=== PATIENT | male | born 1970 | race Two or more races ===

== ENCOUNTER 2019-08-24 23:39 | Emergency (ER) | payer MEDICAID, SELFPAY ==
[~2019-08-24] VITALS: Ht 172.7 cm; Wt 73.9 kg
[2019-08-25 01:09] LABS: Basophils # (auto) 0 10 ^3/uL (0-0.2); Basophils % (auto) 0.3 % (0.0-2.0); Eosinophils # (auto) 0 10 ^3/uL (0-0.8); Eosinophils % (auto) 0.1 % (0.0-7.0); Mean Corpuscular Hemoglobin 34.1 pg (28.0-32.0); Monocytes # (auto) 0.7 10 ^3/uL (0-1.3); Neutrophils # (auto) 3.5 10 ^3/uL (1.6-8.6); Red Cell Distribution Width 12.5 % (11.8-14.3)
[2019-08-25 01:11] LABS: Hematocrit 45.6 % (41.0-53.0); Hemoglobin 15.6 g/dL (13.5-17.5); Lymphocytes # (auto) 0.9 10 ^3/uL (0.4-5.4); Lymphocytes % (auto) 17.3 % (10.0-50.0); Mean Corpuscular Hgb Conc. 34.2 g/dL (32.0-36.0); Mean Corpuscular Volume 99.7 fL (80.0-100.0); Monocytes % (auto) 13.3 % (0.0-12.0); Nucleated Red Blood Cells % 0.2 %; Platelet Count (auto) 117 10^3/uL (140-450); Red Blood Cells 4.57 10^6/uL (4.5-5.90); White Blood Cell 5.1 10^3/uL (4.4-10.8)
[2019-08-25 01:24] LABS: Albumin 3.3 g/dL (3.4-5.0); Anion Gap 7 (5-15); Blood Urea Nitrogen 8 mg/dL (7-18); Calcium 8.5 mg/dL (8.5-10.1); Carbon Dioxide 27 mmol/L (21-32); Chloride 102 mmol/L (98-107); Glucose 117 mg/dL (74-106); Magnesium 2.4 mg/dL (1.6-2.6); Potassium 3.9 mmol/L (3.5-5.1); Sodium 136 mmol/L (136-145)
[2019-08-25 01:26] LABS: Alanine Aminotransferase 154 U/L (16-61); Aspartate Aminotransferase 98 U/L (15-37); BUN/Creatinine Ratio 10.3; GFR African American 137 mL/min; GFR Non-African American 113 mL/min
[2019-08-25 01:42] LABS: Alkaline Phosphatase 65 U/L (45-117); Bilirubin, Total 0.5 mg/dL (0.2-1.0); Total Protein 8.1 g/dL (6.4-8.2)
[2019-08-25 05:50] VITALS: BP 120/76
== END 2019-08-25 06:27 | disposition home or self-care (01) ==
LOC: EDBD 23:39 → ER 23:42
DX: U07.1 COVID-19 (principal); J45.909 Unspecified asthma, uncomplicated; J01.00 Acute maxillary sinusitis, unspecified
CPT/HCPCS: 36415; 71045; 80053; 80320; 82728; 83735; 84484; 85025; 87070; 87635; 87804; 87880; 99001

== ENCOUNTER 2024-11-11 14:12 | Inpatient (IN) | payer MEDICAID ==
[~2024-11-11] VITALS: Ht 172.7 cm; Wt 80.3 kg
--- NOTE | 2024-11-11 14:51 | ED.PDOC ---
GI ASSESSMENT HPI Comments 54 year old male presents to the ED with a chief complaint of abdominal pain onset 3 days. Patient states he was at work 3 days ago, began experiencing generalized weakness, sweats, abdominal discomfort, dark stool with blood. Patient states symptoms worsen today, he was at work began experiencing dizziness, blurry vision, abdominal discomfort, weakness, sweats, pale, headache. Denies any PMHx as well as chest pain, vomiting, diarrhea, hematemesi s, dysuria. No other symptoms or modifying factors present at this time. Chief Complaint: Abdominal Pain Time Seen by MD: 14:40 Reviewed Notes: Medications, Allergies Allergies: Coded Allergies: Caffeine (Verified Allergy, Unknown, 11/11/24) Information Source: Patient Mode of Arrival: Wheelchair Timing: Days Duration: Since onset Prehospital treatment: None Quality: Sharp Vomitus: None Stool: Blood Streaked, Black Severity: Moderate Recent: None Recent Hx of: None Pain Location: Diffuse Modifying Factors: Nothing Associated sign and symptoms: Nausea, Vomiting, Melena, Abdominal Pain, Blood in Stool Past Medical History PAST MEDICAL HISTORY: Denies Surgical History: Denies all surgeries Family History Family History: Reviewed,noncontributory to illness Social History Smoker: Non-Smoker Alcohol: Occasionally Drugs: Denies Drug Use Lives In: Home Constitutional: reports: sweats, weakness; denies: chills, diaphoresis, fatigue, fever, malaise, others EENTM: denies: blurred vision, double vision, ear bleeding, ear discharge, ear drainage, ear pain, ear ringing, eye pain, eye redness, hearing loss, mouth pain, mouth swelling, nasal discharge, nose bleeding, nose congestion, nose pain, photophobia, tearing, throat pain, throat swelling, voice changes, others Respiratory: denies: cough, hemoptysis, orthopnea, SOB at rest, shortness of breath, SOB with excertion, stridor, wheezing, others Cardiovascular: denies: chest pain, dizzy spells, diaphoresis, Dyspnea on exertion, edema, irregular heart beat, left arm pain, lightheadedness, palpitations, PND, syncope, others Gastrointestinal: reports: abdominal pain, melena, rectal bleeding; denies: abdomen distended, blood streaked bowels, constipated, diarrhea, dysphagia, difficulty swallowing, hematemesis, nausea, poor appetite, poor fluid intake, rectal pain, vomiting, others Genitourinary: denies: burning, dysuria, flank pain, frequency, hematuria, incontinence, penile discharge, penile sore, pain, testicle pain, testicle swelling, urgency, others Neurological: reports: dizziness, weakness; denies: fainting, headache, left sided numbness, left sided weakness, numbness, paresthesia, pre-existing deficit, right sided numbness, right sided weakness, seizure, speech problems, tingling, tremors, others Musculoskeletal: denies: back pain, gout, joint pain, joint swelling, muscle pain, muscle stiffness, neck pain, others Integumetry: denies: bruises, change in color, change in hair/nails, dryness, laceration, lesions, lumps, rash, wounds, others Allergic/Immunocompromised: denies: Difficulty Healing, Frequent Infections, Hives, Itching, others Hematologic/Lymphatic: denies: anemia, blood clots, easy bleeding, easy bruising, swollen glands, others Endocrine: denies: excessive hunger, excessive sweating, excessive thirst, excessive urination, flushing, intolerance to cold, intolerance to heat, unexplained weight gain, unexplained weight loss, others Psychiatric: denies: anxiety, bipolar disorder, depression, hopeless, panic disorder, schizophrenia, sleepless, suicidal, others All Other Systems: Reviewed and Negative Physical Exam General Appearance: Moderate Distress, Normal HEENT: Normal ENT Inspection, Pharynx Normal, TMs Normal Neck: Full Range of Motion, Non-Tender, Normal, Normal Inspection Respiratory: Chest Non-Tender, Lungs Clear, No Accessory Muscle Use, No Respiratory Distress, Normal Breath Sounds Cardiovascular: No Edema, No JVD, No Murmur, No Gallop, Normal Peripheral Pulses, Regular Rate/Rhythm Breast Exam: Deferred Gastrointestinal: No Organomegaly, Non Tender, No Pulsatile Mass, Normal Bowel Sounds, Soft Genitalia: Deferred Pelvic: Deferred Rectal: Deferred Extremities: No calf tenderness, Normal capillary refill, Normal inspection, Normal range of motion, Non-tender, No pedal edema Musculoskeletal : Apperance: Normal Neurologic: Alert, 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 Was a procedure done?: No GI differential Dx Differential Diagnosis: Constipation, Diverticular disease, Esophagitis, Gastritis/PUD, Gastroenteritis X-Ray, Labs, Meds, VS Vital Signs Date Time Temp Pulse Resp B/P (MAP) Pulse Ox O2 Delivery O2 Flow Rate FiO2 11/11/24 14:25 97.8 97 16 112/72 (85) 99 97.8 Lab Test 11/11/24 15:17 Range/Units White Blood Count 7.5 4.4-10.8 10^3/uL Red Blood Count 2.66 L 4.5-5.90 10^6/uL Hemoglobin 9.4 L 13.5-17.5 g/dL Hematocrit 26.8 L 41.0-53.0 % Mean Corpuscular Volume 100.9 H 80.0-100.0 fL Mean Corpuscular Hemoglobin 35.2 H 28.0-32.0 pg Mean Corpuscular Hemoglobin Concent 34.9 32.0-36.0 g/dL Red Cell Distribution Width 13.3 11.8-14.3 % Platelet Count 160 140-450 10^3/uL Mean Platelet Volume 9.6 6.9-10.8 fL Neutrophils (%) (Auto) 76.0 37.0-80.0 % Lymphocytes (%) (Auto) 14.2 10.0-50.0 % Monocytes (%) (Auto) 9.1 0.0-12.0 % Eosinophils (%) (Auto) 0.3 0.0-7.0 % Basophils (%) (Auto) 0.4 0.0-2.0 % Neutrophils # (Auto) 5.7 1.6-8.6 10 ^3/uL Lymphocytes # (Auto) 1.1 0.4-5.4 10 ^3/uL Monocytes # (Auto) 0.7 0-1.3 10 ^3/uL Eosinophils # (Auto) 0 0-0.8 10 ^3/uL Basophils # (Auto) 0 0-0.2 10 ^3/uL Nucleated Red Blood Cells 0.1 % Sodium Level 142 136-145 mmol/L Potassium Level 4.2 3.5-5.1 mmol/L Chloride Level 110 H 98-107 mmol/L Carbon Dioxide Level 24 20-31 mmol/L Anion Gap 8 5-15 Blood Urea Nitrogen 25 H 9-23 mg/dL Creatinine 0.69 L 0.700-1.30 mg/dL Glomerular Filtration Rate Calc 110 >90 mL/min BUN/Creatinine Ratio 36.2 H 10.0-20.0 Serum Glucose 108 H 74-106 mg/dL Calcium Level 9.0 8.7-10.4 mg/dL Patient alert. Complaining of abdominal discomfort along with tarry stools. Vitals stable. Answering all questions. Abdomen is soft slightly distended. CT scan of the abdomen reviewed does show colonic disease. Possibly will need colonoscopy. GI consultation. Was given Protonix. Explained to the patient. Continue cardiac monitoring. Time of 1ST Reevaluation: 15:10 Reevaluation 1ST: Unchanged Patient Education/Counseling: Diagnosis, Treatment, Prognosis Family Education/Counseling: Diagnosis, Treatment, Prognosis SEPSIS Sepsis Screen Date sepsis recognized/suspect: Nov 11, 2024 Time Sepsis recognized/suspect: 1422 Recent Procedure: No On Antibiotic Therapy: No Respiratory Rate >20: No Heart Rate >90: Yes Temp<36 C (96.8 F) or >38.3 C: No SBP <90 or MAP <65 mmHG: No New Acute Mental Status Change: No Is the patient on CPAP, BIPAP,: No Physician Orders Ct Ab Pel Wo Con-No Oral Or Iv (11/11/24 14:52) Vital Signs Date Time Temp Pulse Resp B/P (MAP) Pulse Ox O2 Delivery O2 Flow Rate FiO2 11/11/24 14:25 97.8 97 16 112/72 (85) 99 97.8 Laboratory Tests Test 11/11/24 15:17 White Blood Count 7.5 10^3/uL (4.4-10.8) Departure 1 Departure Time of Disposition: 15:07 Impression: Primary Impression: GI bleed Qualified Codes: K92.2 - Gastrointestinal hemorrhage, unspecified Disposition: 09 ADMITTED INPATIENT Admit to: Med Surg Condition: Guarded Critical Care Note Critical Care Time?: No Stability Stability form required: No Heart Score Heart Score: Heart Score Response (Comments) Value History N/A 0 EKG N/A 0 Age N/A 0 Risk Factors N/A 0 Troponin N/A 0 Total 0 I personally scribed for FAYE KWONG MD ([email or web address]) on 11/11/24 at 14:51. Electronically submitted by Faith Merrill ([email or web address]). FAYE KWONG MD Nov 11, 2024 14:51
[2024-11-11 15:36] LABS: Basophils # (auto) 0 10 ^3/uL (0-0.2); Basophils % (auto) 0.4 % (0.0-2.0); Eosinophils # (auto) 0 10 ^3/uL (0-0.8); Eosinophils % (auto) 0.3 % (0.0-7.0); Hemoglobin 9.4 g/dL (13.5-17.5); Mean Corpuscular Hgb Conc. 34.9 g/dL (32.0-36.0); Monocytes # (auto) 0.7 10 ^3/uL (0-1.3)
--- NOTE | 2024-11-11 15:36 | DVH ---
Indication: gibleed Technique: CT axial images of the abdomen and pelvis are obtained without contrast. Coronal and sagit kathie reformats were obtained. Radiation Dose Information: CTDI volume is 7.6 mGy. Dose-length product is 492.08 mGy*cm Comparison: None FINDINGS: There is limited interpretation of the abdomen and pelvis without administration of intravenous contr ast. Lung bases demonstrate atelectasis. Adrenal glands, spleen, pancreas unremarkable in shape. Hepatic steatosis. No CT evidence for dinesh lithiasis. No hydronephrosis, nephrolithiasis. Stomach partially distended. Small bowel loops are normal in caliber. Colonic diverticular disease. Moderate volume stool in the colon. Normal appendix. Bladder partially distended. No free pelvic fluid. No inguinal lymphadenopathy. Moderate left and [id number] right sacroiliitis. Cxie-as-[id number] thoracolumbar degenerative di sc disease. IMPRESSION: Colonic diverticular disease. No hydronephrosis / nephrolithiasis. Hepatic steatosis. Other findings as described.
[2024-11-11 15:37] LABS: Hematocrit 26.8 % (41.0-53.0); Lymphocytes # (auto) 1.1 10 ^3/uL (0.4-5.4); Lymphocytes % (auto) 14.2 % (10.0-50.0); Mean Corpuscular Hemoglobin 35.2 pg (28.0-32.0); Mean Corpuscular Volume 100.9 fL (80.0-100.0); Monocytes % (auto) 9.1 % (0.0-12.0); Neutrophils # (auto) 5.7 10 ^3/uL (1.6-8.6); Nucleated Red Blood Cells % 0.1 %; Platelet Count (auto) 160 10^3/uL (140-450); Red Blood Cells 2.66 10^6/uL (4.5-5.90); Red Cell Distribution Width 13.3 % (11.8-14.3); White Blood Cell 7.5 10^3/uL (4.4-10.8)
[2024-11-11 15:42] LABS: Potassium 4.2 mmol/L (3.5-5.1); Sodium 142 mmol/L (136-145)
[2024-11-11 15:43] LABS: Anion Gap 8 (5-15); Carbon Dioxide 24 mmol/L (20-31)
[2024-11-11 15:48] LABS: BUN/Creatinine Ratio 36.2 (10.0-20.0)
[2024-11-11 15:51] LABS: Blood Urea Nitrogen 25 mg/dL (9-23); Chloride 110 mmol/L (98-107); Glucose 108 mg/dL (74-106)
[2024-11-11 16:33] VITALS: PULSE 99; RESP 18; O2SAT 100
[2024-11-11] MEDS: PANTOPRAZOLE 40 MG/10 ML VIAL INJ IV ONE (16:53)
[2024-11-11] MEDS: ONDANSETRON HCL 4 MG/2 ML VIAL IV ONE (16:53)
[2024-11-11] MEDS: SODIUM CHLORIDE 0.9% 1,000 ML IVB ONE (16:53)
[2024-11-11] MEDS: MORPHINE SULFATE 4 MG/ML SYR/VIAL IV ONE (16:54)
[2024-11-11 18:23] LABS: Urine Bacteria None Seen /hpf (None Seen)
[2024-11-11 18:33] LABS: Urine Blood Negative /uL (Negative); Urine Clarity Clear (Clear); Urine Color Light-Yellow (Yellow); Urine Protein, UAD Negative (Negative); Urine Specific Gravity 1.027 (1.001-1.035); Urine Squamous Epithelial Cell None Seen /hpf (<5); Urine Urobilinogen Normal (Negative); Urine WBC 1 /HPF (0-3)
[2024-11-11] MEDS ORDERED: ONDANSETRON HCL 4 MG/2 ML VIAL IV PRN (19:15)
[2024-11-11 20:01] LABS: Hematocrit 24.6 % (41.0-53.0); Hemoglobin 8.6 g/dL (13.5-17.5)
--- NOTE | 2024-11-11 23:44 | DVHHP2 ---
History of Present Illness Reason for Visit: GI bleed History of Present Illness 54-year-old male presents for evaluation of GI bleed. Patient reports noticing dark-colored stool over the past four days. He states having a three day history of abdominal discomfort with associated diaphoresis intermittently. He also reports occasional dizziness. Denies shortness or breath or palpitations. Past Medical History Denies Past Surgical History Denies Family History Noncontributory Smoke: No ALCOHOL: occassional Drugs: None Lives: with Family Review of Systems Review of Systems Review of systems are currently negative otherwise addressed in HPI. Allergies: Coded Allergies: Caffeine (Verified Allergy, Unknown, 11/11/24) Medications Current Medications Medications Dose Ordered Sig/Rupinder Route Start Time Stop Time Status Last Admin Dose Admin Ondansetron HCl 4 mg Q4HP PRN IV 11/11/24 19:15 Pantoprazole Sodium 40 mg BID IV 11/11/24 23:45 UNV Exam Vital Signs Vital Signs Date Time Temp Pulse Resp B/P (MAP) Pulse Ox O2 Delivery O2 Flow Rate FiO2 11/11/24 20:58 85 18 109/59 11/11/24 20:14 100 11/11/24 16:33 98.0 98.0 11/11/24 16:33 Room Air* 0 21 Exam Gen: 54-year-old male in mild distress. Skin: Warm, dry, normal color and texture, no rash. HEENT: Normocephalic atraumatic, mucous membranes moist and pink. Neck: Cervical and supraclavicular nodes normal without enlargement, trachea is midline, thyroid gland is normal without masses. Pulmonary: Clear to auscultation and percussion bilaterally. Cardiac: Regular rate and rhythm. No murmur Abdomen: Soft, nontender, nondistended, bowel sounds present all 4 quadrants, no guarding, no rigidity, no organomegaly. Extremities: No cyanosis, clubbing, no edema Neuro: Cranial nerves II through XII grossly intact, normal affect and speech, no focal motor deficits. Labs/Xrays ORDERING PHYSICIAN: FAYE KWONG MD PROCEDURE(s): ABPL - CT AB PEL WO CON-NO ORAL OR IV REASON: gibleed ORDER NUMBER(s): [id number], ACCESSION NUMBER(s): [id number] Indication: gibleed Technique: CT axial images of the abdomen and pelvis are obtained without contrast. Coronal and sagittal reformats were obtained. Radiation Dose Information: CTDI volume is 7.6 mGy. Dose-length product is 492.08 mGy*cm Comparison: None FINDINGS: There is limited interpretation of the abdomen and pelvis without administration of intravenous contrast. Lung bases demonstrate atelectasis. Adrenal glands, spleen, pancreas unremarkable in shape. Hepatic steatosis. No CT evidence for cholelithiasis. No hydronephrosis, nephrolithiasis. Stomach partially distended. Small bowel loops are normal in caliber. Colonic diverticular disease. Moderate volume stool in the colon. Normal appendix. Bladder partially distended. No free pelvic fluid. No inguinal lymphadenopathy. Moderate left and [id number] right sacroiliitis. Iyri-xe-fhplefss thoracolumbar degenerative disc disease. IMPRESSION: Colonic diverticular disease. No hydronephrosis / nephrolithiasis. Hepatic steatosis. Other findings as described. ATED BY: MINDY CONNELLY MD DICTATED DATE/TIME: 11/11/24 1535 SIGNED BY: MINDY CONNELLY MD SIGNED DATE/TIME: 11/11/24 153 CC: Labs Test 11/11/24 19:29 11/11/24 18:21 11/11/24 15:17 Range/Units Hemoglobin 8.6 L 13.5-17.5 g/dL Hematocrit 24.6 L 41.0-53.0 % Urine Color Light-yellow Yellow Urine Clarity Clear Clear Urine pH 5.0 5.0-9.0 Urine Specific [place] 1.027 1.001-1.035 Urine Protein Negative Negative Urine Ketones Negative Negative Urine Blood Negative Negative /uL Urine Nitrite Negative Negative Urine Bilirubin Negative Negative Urine Urobilinogen Normal Negative mg/dL Urine Leukocyte Esterase Negative Negative /uL Urine RBC 1 0 - 3 /hpf Urine Microscopic WBC 1 0-3 /HPF Urine Squamous Epithelial Cells None seen <5 /hpf Urine Bacteria None seen None Seen /hpf Urine Glucose Normal Normal mg/dL White Blood Count 7.5 4.4-10.8 10^3/uL Red Blood Count 2.66 L 4.5-5.90 10^6/uL Mean Corpuscular Volume 100.9 H 80.0-100.0 fL Mean Corpuscular Hemoglobin 35.2 H 28.0-32.0 pg Mean Corpuscular Hemoglobin Concent 34.9 32.0-36.0 g/dL Red Cell Distribution Width 13.3 11.8-14.3 % Platelet Count 160 140-450 10^3/uL Mean Platelet Volume 9.6 6.9-10.8 fL Neutrophils (%) (Auto) 76.0 37.0-80.0 % Lymphocytes (%) (Auto) 14.2 10.0-50.0 % Monocytes (%) (Auto) 9.1 0.0-12.0 % Eosinophils (%) (Auto) 0.3 0.0-7.0 % Basophils (%) (Auto) 0.4 0.0-2.0 % Neutrophils # (Auto) 5.7 1.6-8.6 10 ^3/uL Lymphocytes # (Auto) 1.1 0.4-5.4 10 ^3/uL Monocytes # (Auto) 0.7 0-1.3 10 ^3/uL Eosinophils # (Auto) 0 0-0.8 10 ^3/uL Basophils # (Auto) 0 0-0.2 10 ^3/uL Nucleated Red Blood Cells 0.1 % Sodium Level 142 136-145 mmol/L Potassium Level 4.2 3.5-5.1 mmol/L Chloride Level 110 H 98-107 mmol/L Carbon Dioxide Level 24 20-31 mmol/L Anion Gap 8 5-15 Blood Urea Nitrogen 25 H 9-23 mg/dL Creatinine 0.69 L 0.700-1.30 mg/dL Glomerular Filtration Rate Calc 110 >90 mL/min BUN/Creatinine Ratio 36.2 H 10.0-20.0 Serum Glucose 108 H 74-106 mg/dL Calcium Level 9.0 8.7-10.4 mg/dL Assessment/Plan Assessment/Plan Assessment GI bleed Blood loss anemia Generalized weakness Plan Admit the patient to [facility] [place] to the hospitalist GI consult NPO Transfuse if hemoglobin drops below seven Continue treatment per orders. Plan discussed with: Patient My Orders Orders - ABDI JAIME AGACNCathy Procedure Category Date Status Time * Gi Dvh [facility] [place] CONS 11/11/24 Transmitted 19:03 Stool Occult Blood LAB 11/11/24 Logged 19:03 Basic Metabolic Panel LAB 11/12/24 Verified 04:00 Admit ADMIT 11/11/24 Transmitted 19:03 Ondansetron Hcl PHA 11/11/24 In Process (Zofran) 19:15 Complete Blood Count LAB 11/12/24 Verified 04:00 Condition: Stable SANDHYA 11/11/24 In Process 19:03 Clear Liq Diet DIET 11/12/24 Transmitted Breakfast Bedrest With Bathroom SANDHYA 11/11/24 In Process Privileg 19:03 Pantoprazole PHA 11/11/24 Logged (Protonix) 23:45 Type And Screen BBK 11/11/24 Transmitted 23:39 Date of Service: Nov 11, 2024 Billing Provider: ABDI JAIME Common Visit Codes: [id number] INP/OBS CARE (HIGH) ABDI JAIME Nov 11, 2024 23:44
[2024-11-11] MEDS: D5W/SOD CHL 0.45% 1,000 ML IV ONE (23:45)
[2024-11-12] VITALS (9 sets, daily range): BP systolic 109–134; BP diastolic 64–89; PULSE 81–102; RESP 14–18; TEMP 98.2–98.6; O2SAT 95–100
[2024-11-12] MEDS: PANTOPRAZOLE 40 MG/10 ML VIAL INJ IV SCH (01:29)
[2024-11-12 04:31] LABS: Anion Gap 8 (5-15); Carbon Dioxide 25 mmol/L (20-31); Potassium 3.9 mmol/L (3.5-5.1); Sodium 141 mmol/L (136-145)
[2024-11-12 04:35] LABS: Calcium 8.1 mg/dL (8.7-10.4); Chloride 108 mmol/L (98-107)
[2024-11-12 04:37] LABS: BUN/Creatinine Ratio 25.4 (10.0-20.0); Blood Urea Nitrogen 15 mg/dL (9-23)
[2024-11-12 04:38] LABS: Basophils # (auto) 0 10 ^3/uL (0-0.2); Eosinophils # (auto) 0.1 10 ^3/uL (0-0.8); Hemoglobin 8.3 g/dL (13.5-17.5); Monocytes # (auto) 0.9 10 ^3/uL (0-1.3); Neutrophils # (auto) 4.6 10 ^3/uL (1.6-8.6); Nucleated Red Blood Cells % 0.2 %; White Blood Cell 7.3 10^3/uL (4.4-10.8)
[2024-11-12 04:40] LABS: Basophils % (auto) 0.4 % (0.0-2.0); Hematocrit 23.6 % (41.0-53.0); Lymphocytes # (auto) 1.7 10 ^3/uL (0.4-5.4); Lymphocytes % (auto) 23.6 % (10.0-50.0); Mean Corpuscular Hemoglobin 35.5 pg (28.0-32.0); Mean Corpuscular Hgb Conc. 34.9 g/dL (32.0-36.0); Mean Corpuscular Volume 101.6 fL (80.0-100.0); Monocytes % (auto) 12.4 % (0.0-12.0); Neutrophils % (auto) 62.6 % (37.0-80.0); Platelet Count (auto) 140 10^3/uL (140-450); Red Blood Cells 2.33 10^6/uL (4.5-5.90); Red Cell Distribution Width 13.2 % (11.8-14.3)
[2024-11-12 04:45] LABS: Glucose 120 mg/dL (74-106)
[2024-11-12] MEDS ORDERED: SODIUM CHLORIDE 0.9% 1,000 ML IV SCH (08:00)
[2024-11-12] MEDS ORDERED: PANTOPRAZOLE 40 MG/10 ML VIAL INJ IV SCH (10:00)
[2024-11-12] MEDS ORDERED: HYDROcodone-ACET 5/325MG TAB PO PRN (10:00)
[2024-11-12] MEDS ORDERED: ACETAMINOPHEN 325 MG TAB PO PRN (10:00)
[2024-11-12 10:28] LABS: Folate (Folic Acid) 16.4 ng/mL (>5.38)
[2024-11-12 10:32] LABS: % Iron Saturation 38.9 % (20-55)
[2024-11-12] MEDS: HYDROcodone-ACET 5/325MG TAB PO PRN (10:51)
[2024-11-12 12:19] LABS: INR 1.09 (0.9-1.15); Prothrombin Time 11.5 sec (9.3-11.8)
--- NOTE | 2024-11-12 12:30 | DVH ---
EXAM: XY CHEST XRAY 1 VIEW Indication: Pain; Rule out PNA Technique: Single frontal view of the chest was obtained Comparison: None FINDINGS: Lines and Tubes: None Lungs: Nodular opacity projecting over the right mid lung measuring 7 mm. No focal consolidation. Pleura: No effusion. No pneumothorax. Cardiomediastinal contours: Unremarkable Bones: No acute osseous abnormality. IMPRESSION: Nodular opacity projecting over the right mid lung measuring 7 mm. No focal consolidation. If clinica lly indicated, consider further evaluation with CT.
--- NOTE | 2024-11-12 13:00 | DVHINCON2 ---
GI Consult Consult Note GI consult note Date of Consultation: 11/12/2024 Chief Complaint: GI bleed Referring Physician: Gui Franco H&P: 54-year-old male presents with melena. Patient complains of dark stools for 4-5 days. Also complaining of mild periumbilical discomfort. No nausea or vomiting. No history of GERD. Admits to occasional alcohol only. Takes Excedrin about 2-3 times per week. Denies liver problems. No EGD in past. No blood thinners Past Medical History: Denies Past Surgical History: Denies Social History: NO smoking, occasional drinking ETOH and denies use of illegal drugs. Family History: Noncontributory Review of Systems: Constitutional: no fever, chill, weight loss HEENT: no eye pain, no hearing loss, no oral lesion, no scleral icterus Heart: no chest pain, no chest pressure Lung: no cough, no dyspnea with exertion Abdomen: see HPI Physical exam: General: NAD, AAOX3 Chest: lung oliver clear to auscultation Heart: RRR, no murmur Abdomen: non-distended, no tenderness to palpation, +BS Labs: Labs Test 11/12/24 11:48 11/12/24 09:00 11/12/24 03:44 11/11/24 18:21 Range/Units Prothrombin Time 11.5 9.3-11.8 sec Prothrombin Time INR 1.09 0.9-1.15 Stool Occult Blood Positive Negative Stool Occult Blood Sample #3 Negative White Blood Count 7.3 4.4-10.8 10^3/uL Red Blood Count 2.33 L 4.5-5.90 10^6/uL Hemoglobin 8.3 L 13.5-17.5 g/dL Hematocrit 23.6 L 41.0-53.0 % Mean Corpuscular Volume 101.6 H 80.0-100.0 fL Mean Corpuscular Hemoglobin 35.5 H 28.0-32.0 pg Mean Corpuscular Hemoglobin Concent 34.9 32.0-36.0 g/dL Red Cell Distribution Width 13.2 11.8-14.3 % Platelet Count 140 140-450 10^3/uL Mean Platelet Volume 9.5 6.9-10.8 fL Neutrophils (%) (Auto) 62.6 37.0-80.0 % Lymphocytes (%) (Auto) 23.6 10.0-50.0 % Monocytes (%) (Auto) 12.4 H 0.0-12.0 % Eosinophils (%) (Auto) 1.0 0.0-7.0 % Basophils (%) (Auto) 0.4 0.0-2.0 % Neutrophils # (Auto) 4.6 1.6-8.6 10 ^3/uL Lymphocytes # (Auto) 1.7 0.4-5.4 10 ^3/uL Monocytes # (Auto) 0.9 0-1.3 10 ^3/uL Eosinophils # (Auto) 0.1 0-0.8 10 ^3/uL Basophils # (Auto) 0 0-0.2 10 ^3/uL Nucleated Red Blood Cells 0.2 % Sodium Level 141 136-145 mmol/L Potassium Level 3.9 3.5-5.1 mmol/L Chloride Level 108 H 98-107 mmol/L Carbon Dioxide Level 25 20-31 mmol/L Anion Gap 8 5-15 Blood Urea Nitrogen 15 # 9-23 mg/dL Creatinine 0.59 L 0.700-1.30 mg/dL Glomerular Filtration Rate Calc 115 >90 mL/min BUN/Creatinine Ratio 25.4 H 10.0-20.0 Serum Glucose 120 H 74-106 mg/dL Hemoglobin A1c 5.3 <5.7 % A1C Calcium Level 8.1 L 8.7-10.4 mg/dL Iron Level 125 65-175 ug/dL Total Iron Binding Capacity 321 250-425 ug/dL Percent Iron Saturation 38.9 20-55 % Vitamin B12 Level 430 211-911 pg/mL Vitamin D 25-Hydroxy 21.1 L 30.0-100 ng/mL Folic Acid 16.40 >5.38 ng/mL Thyroid Stimulating Hormone (TSH) 2.57 0.55-4.78 uIU/mL Urine Color Light-yellow Yellow Urine Clarity Clear Clear Urine pH 5.0 5.0-9.0 Urine Specific [place] 1.027 1.001-1.035 Urine Protein Negative Negative Urine Ketones Negative Negative Urine Blood Negative Negative /uL Urine Nitrite Negative Negative Urine Bilirubin Negative Negative Urine Urobilinogen Normal Negative mg/dL Urine Leukocyte Esterase Negative Negative /uL Urine RBC 1 0 - 3 /hpf Urine Microscopic WBC 1 0-3 /HPF Urine Squamous Epithelial Cells None seen <5 /hpf Urine Bacteria None seen None Seen /hpf Urine Glucose Normal Normal mg/dL Imaging: CT abdomen pelvis IMPRESSION: Colonic diverticular disease. No hydronephrosis / nephrolithiasis. Hepatic steatosis. Other findings as described. Assessment: GI bleed Anemia Colonic diverticular disease Hepatic steatosis Plan: Discussed with Dr. Rees - Pt will be scheduled for an EGD today 11/12/2024. Pt was informed of the risks (bleeding, infection, perforation, reaction to sedation medications and cardiopulmonary arrest) and benefit and is agreeable to undergo the procedures. Labs for LFT Discussed plan with patient and RN Thank you for this consult Date of Service: Nov 12, 2024 Billing Provider: IMELDA HEDRICK Common Visit Codes: CONSULT ONLY Consultation Codes: [id number] CONSULT <60MIN IMELDA HEDRICK Nov 12, 2024 13:00
[2024-11-12] MEDS ORDERED: SODIUM CHLORIDE LOCK 10 ML ONE (13:29)
[2024-11-12] MEDS: LIDOCAINE VISCOUS 2% 15ML UD ONE (16:16)
[2024-11-12] MEDS: fentaNYL CITRATE 100 MCG/2 ML VL ONE (16:17)
[2024-11-12] MEDS: MIDAZOLAM HCL 5 MG/ML-1ML VIAL ONE (16:17)
[2024-11-12] MEDS: diphenhdrAMINE HCL 50 MG/1 ML VL ONE (16:17)
--- NOTE | 2024-11-12 16:36 | DVHPNRES ---
Progress Note Date Seen: Nov 12, 2024 Resident Creating Document: MOISES HANNA RESIDENT Medical Necessity Reason Pt with a Central, PICC or Fol: No Subjective Review of Systems 54 yo M presents to the hospital with a chief complaint of an acute episode of sweating, feeling cold, and experiencing changes in mental status and vision while at work. The patient reports that during this event, he started sweating and feeling cold, accompanied by a loss of mental clarity and visual disturbances. He denies any blood in his stool. The patient's medical history is significant for low hemoglobin levels, which were recently discovered. He denies any history of hypertension. The patient reports taking medication for headaches at home but does not specify which medications. He denies smoking or drug use. CONSTITUTIONAL: Denies weight loss, fever and chills. HEENT: Admits headache, dizziness RESPIRATORY: Denies SOB and cough. CV: Denies palpitations and chest pain. GI: Denies abdominal pain, nausea, vomiting and diarrhea. : Denies dysuria and urinary frequency. MSK: Denies myalgia and joint pain. SKIN: Denies rash and pruritus. NEUROLOGICAL: No focal deficit Objective vital signs Vital Sign Date Time Temp Pulse Resp B/P (MAP) Pulse Ox O2 Delivery O2 Flow Rate FiO2 11/12/24 12:35 98.2 91 17 128/89 (102) 99 98.2 11/11/24 16:33 Room Air* 0 21 medications Current Medications Medications Dose Ordered Sig/Rupinder Route Start Time Stop Time Status Last Admin Dose Admin Ondansetron HCl 4 mg Q4HP PRN IV 11/11/24 19:15 Pantoprazole Sodium 40 mg BID IV 11/11/24 23:45 11/12/24 10:26 40 MG Acetaminophen/ Hydrocodone Bitart 1 tab Q6HPRN PRN PO 11/12/24 10:00 11/12/24 10:51 1 TAB Acetaminophen 500 mg Q6HPRN PRN PO 11/12/24 10:45 Examination GENERAL: Not in acute distress. HEENT: EOMI, Moist mucous membranes. No scleral icterus. No cervical lymphadenopathy. LUNGS: Clear to auscultation bilaterally. No accessory muscle use. CARDIOVASCULAR: Regular rate and rhythm. No murmur. No JVD. ABDOMEN: Soft, nontender and nondistended. No palpable masses. EXTREMITIES: No edema. Nontender. SKIN: No rashes or lesions. Warm. NEUROLOGIC: Alert and oriented X3 laboratory and microbiology Laboratory Tests 11/12/24 03:44 Test 11/12/24 03:44 Range/Units Serum Glucose 120 H 74-106 mg/dL Problem List/Assessment/Plan Problem List/Assessment/Plan # Symptomatic anemia due to possible upper GI bleed # Melena to likely upper GI bleeding # dizziness due to anemia # orthostatic hypotension due to possible dehydration # Colonic Diverticulosis. # Hepatic steatosis # Generalized weakness due to anemia - today hemoglobin was 8.3 - Consult Gastroenterology for evaluation of potential GI bleeding - is still occult blood positive - Order blood tests to assess for vitamin deficiencies - Maintain NPO status or possible endoscopy - Transfuse if hemoglobin drops below 7. # Intractable headache - Administer Tylenol 500mg PO q6h PRN for headache - headache is improving Goal of care discussed with patient for 23 minutes: Full code Plan discussed with Dr. Charles Plan discussed with: Patient My Orders My Orders Orders - MOISES HANNA RESIDENT Procedure Category Date Status Time Drug Screen LAB 11/12/24 Logged 07:48 Hydrocodone-Acet PHA 11/12/24 In Process 5/325mg Tab ([place] 10:00 Acetaminophen Tab Or PHA 11/12/24 In Process Cap (Tylenol Tablet 10:45 Electrocardigram EKG 11/12/24 Logged 11:18 Chest Xray 1 View XY 11/12/24 Resulted 11:31 Date of Service: Nov 12, 2024 Billing Provider: LUNA MCMILLAN MD Common Visit Codes: [id number] INP/OBS CARE(HIGH) MOISES HANNA RESIDENT Nov 12, 2024 16:36 LUNA MCMILLAN MD Nov 18, 2024 21:57
--- NOTE | 2024-11-12 16:43 | DVHOP2 ---
Operative Report DATE OF OPERATION: 11/12/24 PROCEDURE: Upper Endoscopy with biopsy. PREOPERATIVE INDICATION: The patient is a 54 -year-old male undergoing endoscopy for melena and anemia POSTOPERATIVE DIAGNOSES: 1. Moderate gastritis and gastropathy and multiple pre-pyloric antral gastric ulcers PROCEDURE PERFORMED BY: Tyrone Rees GI NURSE: Shu SCOPE: Olympus videoendoscope. ASA CLASS: 2 PREOPERATIVE MEDICATIONS: Versed 3 mg, Fentanyl 50 mcg, Benadryl 50 mg I administered moderate sedation throughout this _7_ minutes procedure. An independent trained observer pushed medications at my direction, and monitored the patient's level of consciousness and physiological status throughout. PROCEDURE IN DETAIL: After obtaining an informed consent, the patient was placed on left lateral decubitus position. The patient was then sedated with the above medications. A bite block was placed between his teeth. The endoscope was then passed through the oropharynx, into the esophagus, and through the stomach and pylorus up to the second and third part of the duodenum. The endoscope was then withdrawn. Second and 3rd part of the duodenum and the duodenal bulb were normal. Duodenal biopsies were obtained The pre-pyloric area and antrum showed multiple antral gastric ulcers Alexander classification C with no visible vessel no active bleeding On retroflexion there was mild gastropathy in the proximal stomach. Gastric b iopsies were obtained. No fresh or old blood in the upper GI tract The endoscope was then withdrawn into distal esophagus where he had a slightly irregular squamocolumnar junction but no significant hiatal hernia or esophagitis The remaining distal and proximal esophagus and oropharynx were unremarkable. The patient tolerated the procedure well without difficulty. COMPLICATIONS : None SPECIMENS: Duodenal Biopsies Gastric biopsies DISPOSITION: Transfer back to the floor Stable PLAN: 1. Await for biopsy result 2. Will place pt on Protonix 40 mg bid 3. Carafate 1 g p.o. 4 times a day 4. Full liquid diet advance as tolerated 5. DC aspirin Excedrin smoking alcohol 6. Outpatient follow up with me in 4-6 weeks to review results and discuss elective screening colonoscopy TYRONE REES MD Nov 12, 2024 16:43
[2024-11-12] MEDS: SUCRALFATE 1 GM/10 ML ORAL SUSP PO SCH (18:43)
[2024-11-13] VITALS (7 sets, daily range): BP systolic 113–144; BP diastolic 63–89; PULSE 81–122; RESP 16–19; TEMP 98–100.7; O2SAT 92–98
[2024-11-13] MEDS: ACETAMINOPHEN 500 MG TAB or CAP PO PRN (01:09)
[2024-11-13 06:33] LABS: Basophils # (auto) 0 10 ^3/uL (0-0.2); Eosinophils # (auto) 0.1 10 ^3/uL (0-0.8); Hemoglobin 8.5 g/dL (13.5-17.5)
[2024-11-13 06:36] LABS: Basophils % (auto) 0.3 % (0.0-2.0); Eosinophils % (auto) 0.9 % (0.0-7.0); Hematocrit 24.2 % (41.0-53.0); Lymphocytes # (auto) 1.5 10 ^3/uL (0.4-5.4); Lymphocytes % (auto) 15.4 % (10.0-50.0); Mean Corpuscular Hemoglobin 35.8 pg (28.0-32.0); Mean Corpuscular Hgb Conc. 35.3 g/dL (32.0-36.0); Mean Corpuscular Volume 101.5 fL (80.0-100.0); Monocytes % (auto) 10.6 % (0.0-12.0); Neutrophils # (auto) 7.1 10 ^3/uL (1.6-8.6); Neutrophils % (auto) 72.8 % (37.0-80.0); Nucleated Red Blood Cells % 0.3 %; Platelet Count (auto) 143 10^3/uL (140-450); Red Blood Cells 2.38 10^6/uL (4.5-5.90); White Blood Cell 9.8 10^3/uL (4.4-10.8)
[2024-11-13 07:01] LABS: Alanine Aminotransferase 174 U/L (7-40); Albumin 3.7 g/dL (3.2-4.8); Alkaline Phosphatase 68 U/L (46-116); Anion Gap 10 (5-15); Aspartate Aminotransferase 89 U/L (<34); BUN/Creatinine Ratio 11.5 (10.0-20.0); Bilirubin, Total 0.7 mg/dL (0.2-1.0); Blood Urea Nitrogen 9 mg/dL (9-23); Calcium 8.2 mg/dL (8.7-10.4); Carbon Dioxide 26 mmol/L (20-31); Chloride 105 mmol/L (98-107); Glucose 116 mg/dL (74-106); Potassium 3.6 mmol/L (3.5-5.1); Sodium 141 mmol/L (136-145)
--- NOTE | 2024-11-13 13:48 | DVHPNRES ---
Progress Note Date Seen: Nov 13, 2024 Resident Creating Document: MOISES HANNA RESIDENT Medical Necessity Reason Pt with a Central, PICC or Fol: No Subjective Review of Systems Patient seen and examined at bedside, feeling better. No complaint of dizziness today. Patient underwent EGD yesterday, patient was febrile in the morning. Started antibiotics Objective vital signs Vital Sign Date Time Temp Pulse Resp B/P (MAP) Pulse Ox O2 Delivery O2 Flow Rate FiO2 11/13/24 09:00 98.5 81 19 113/70 (84) 98 98.5 11/13/24 08:00 Room Air* 0 21 Total Intake and Output 11/12/24 11/12/24 11/13/24 15:00 23:00 07:00 Intake Total 237 ml 220 ml Balance 237 ml 220 ml medications Current Medications Medications Dose Ordered Sig/Rupinder Route Start Time Stop Time Status Last Admin Dose Admin Ondansetron HCl 4 mg Q4HP PRN IV 11/11/24 19:15 Pantoprazole Sodium 40 mg BID IV 11/11/24 23:45 11/13/24 09:36 40 MG Acetaminophen/ Hydrocodone Bitart 1 tab Q6HPRN PRN PO 11/12/24 10:00 11/13/24 04:08 1 TAB Acetaminophen 500 mg Q6HPRN PRN PO 11/12/24 10:45 11/13/24 01:09 500 MG Sucralfate 1 gm QID@0600,1130,1700,2200 PO 11/12/24 17:00 11/13/24 11:43 1 GM Examination GENERAL: Not in acute distress. HEENT: EOMI, Moist mucous membranes. No scleral icterus. No cervical lymphadenopathy. LUNGS: Clear to auscultation bilaterally. No accessory muscle use. CARDIOVASCULAR: Regular rate and rhythm. No murmur. No JVD. ABDOMEN: Soft, nontender and nondistended. No palpable masses. EXTREMITIES: No edema. Nontender. SKIN: No rashes or lesions. Warm. NEUROLOGIC: Alert and oriented X3. laboratory and microbiology Laboratory Tests 11/13/24 05:31 Test 11/13/24 05:31 Range/Units Serum Glucose 116 H 74-106 mg/dL Problem List/Assessment/Plan Problem List/Assessment/Plan # Symptomatic anemia due to possible upper GI bleed # Melena to likely upper GI bleeding # dizziness due to anemia # orthostatic hypotension due to possible dehydration # Colonic Diverticulosis. # Generalized weakness due to anemia - today hemoglobin was 8.5 - Consult Gastroenterology for evaluation of potential GI bleeding - stool occult blood positive - Order blood tests to assess for vitamin deficiencies - advanced food as tolerated - Transfuse if hemoglobin drops below 7. # Moderate gastritis and gastropathy and multiple pre-pyloric antral gastric ulcers - EGD shows gastric ulcer, no active bleeding - biopsy taken - outpatient follow up with GI to discuss the result of biopsy. # SIRS positive due to possible gastrointestinal infection with unknown organism - temperature was 100.1F, heart rate 122, -started broad-spectrum antibiotic, IV Rocephin and IV metronidazole # Intractable headache - Administer Tylenol 500mg PO q6h PRN for headache - headache is improving. # Transaminitis due to Hepatic steatosis - monitor liver function # incidental finding of lung nodule - chest x-ray shows 7 mm lung nodule - follow up with idea worker for outpatient surveillance. Goal of care discussed with patient for 25 minutes: Full code Plan discussed with Dr. Charles Plan discussed with: Patient Date of Service: Nov 13, 2024 Billing Provider: LUNA MCMILLAN MD Common Visit Codes: [id number] INP/OBS CARE(HIGH) MOISES HANNA RESIDENT Nov 13, 2024 13:48 LUNA MCMILLAN MD Nov 18, 2024 22:03
--- NOTE | 2024-11-13 14:10 | DVHPN2 ---
Progress Note - Dictate Date Seen: Nov 13, 2024 Medical Necessity Reason Pt with a Central, PICC or Fol: No Subjective No new complaints Patient is sitting at the edge of the bed He is tolerating a full liquid diet No nausea vomiting or abdominal pain EGD findings reviewed with patient Operative Report DATE OF OPERATION: 11/12/24 PROCEDURE: Upper Endoscopy with biopsy. PREOPERATIVE INDICATION: The patient is a 54 -year-old male undergoing endoscopy for melena and anemia POSTOPERATIVE DIAGNOSES: 1. Moderate gastritis and gastropathy and multiple pre-pyloric antral gastric ulcers vital signs Vital Sign Date Time Temp Pulse Resp B/P (MAP) Pulse Ox O2 Delivery O2 Flow Rate FiO2 11/13/24 09:00 98.5 81 19 113/70 (84) 98 98.5 11/13/24 08:00 Room Air* 0 21 Total Intake and Output 11/12/24 11/12/24 11/13/24 15:00 23:00 07:00 Intake Total 237 ml 220 ml Balance 237 ml 220 ml medications Current Medications Medications Dose Ordered Sig/Rupinder Route Start Time Stop Time Status Last Admin Dose Admin Ondansetron HCl 4 mg Q4HP PRN IV 11/11/24 19:15 Pantoprazole Sodium 40 mg BID IV 11/11/24 23:45 11/13/24 09:36 40 MG Acetaminophen/ Hydrocodone Bitart 1 tab Q6HPRN PRN PO 11/12/24 10:00 11/13/24 04:08 1 TAB Acetaminophen 500 mg Q6HPRN PRN PO 11/12/24 10:45 11/13/24 01:09 500 MG Sucralfate 1 gm QID@0600,1130,1700,2200 PO 11/12/24 17:00 11/13/24 11:43 1 GM objective General: NAD, AAOX3 Chest: lung oliver clear to auscultation Heart: RRR, no murmur Abdomen: non-distended, no tenderness to palpation, +BS laboratory and microbiology Laboratory Tests 11/13/24 05:31 Test 11/13/24 05:31 Range/Units Serum Glucose 116 H 74-106 mg/dL Problems(with codes): (1) Gastritis (2) Epigastric pain (3) Melena (4) GI bleed Prognosis PLAN Advance to soft mechanical diet His H&H is stable Maintained on Protonix and Carafate Discharge planning as per hospitalist Outpatient follow up with me for elective colonoscopy Plan discussed with: Patient TYRONE EGAN MD Nov 13, 2024 14:10
[2024-11-13] MEDS: cefTRIAXone 1GM/50ML D5W 50 ML IV ONE (16:13)
[2024-11-13] MEDS: metroNIDAZOLE 500MG/100ML 100 ML IV ONE (16:27)
[2024-11-13] MEDS: metroNIDAZOLE 500MG/100ML 100 ML IV SCH (21:57)
[2024-11-14 01:00] VITALS: BP 137/88; PULSE 86; RESP 18; TEMP 98.3; O2SAT 98
[2024-11-14 05:00] VITALS: BP 123/85; PULSE 67; RESP 18; TEMP 97.8; O2SAT 99
[2024-11-14 07:29] LABS: COVID19 ANTIGEN SOFIA FIA NEGATIVE (NEGATIVE); Rapid Influenza A Negative (Negative); Rapid Influenza B Negative (Negative)
[2024-11-14 09:00] VITALS: BP 118/77; PULSE 86; RESP 20; TEMP 97.9; O2SAT 97
[2024-11-14] MEDS ORDERED: SUCR1SUS26 PO (09:44)
[2024-11-14] MEDS ORDERED: METR-344 PO (09:44)
[2024-11-14] MEDS ORDERED: CIPR-173 PO (09:44)
[2024-11-14] MEDS ORDERED: PANT40TA2 PO (09:44)
--- NOTE | 2024-11-14 09:48 | DVHPN2 ---
Progress Note - Dictate Date Seen: Nov 14, 2024 Medical Necessity Reason Pt with a Central, PICC or Fol: No Subjective Patient complaining of headache He also had abdominal pain yesterday after eating Patient was tested for COVID and flu with nasal swab EGD findings reviewed with patient Operative Report DATE OF OPERATION: 11/12/24 PROCEDURE: Upper Endoscopy with biopsy. PREOPERATIVE INDICATION: The patient is a 54 -year-old male undergoing endoscopy for melena and anemia POSTOPERATIVE DIAGNOSES: 1. Moderate gastritis and gastropathy and multiple pre-pyloric antral gastric ulcers vital signs Vital Sign Date Time Temp Pulse Resp B/P (MAP) Pulse Ox O2 Delivery O2 Flow Rate FiO2 11/14/24 09:00 97.9 86 20 118/77 (91) 97 97.9 11/14/24 08:00 Room Air* 0 21 Total Intake and Output 11/13/24 11/13/24 11/14/24 15:00 23:00 07:00 Intake Total 1060 ml 250 ml Balance 1060 ml 250 ml medications Current Medications Medications Dose Ordered Sig/Rupinder Route Start Time Stop Time Status Last Admin Dose Admin Ondansetron HCl 4 mg Q4HP PRN IV 11/11/24 19:15 Pantoprazole Sodium 40 mg BID IV 11/11/24 23:45 11/13/24 21:57 40 MG Acetaminophen/ Hydrocodone Bitart 1 tab Q6HPRN PRN PO 11/12/24 10:00 11/13/24 16:00 1 TAB Acetaminophen 500 mg Q6HPRN PRN PO 11/12/24 10:45 11/13/24 20:14 500 MG Sucralfate 1 gm QID@0600,1130,1700,2200 PO 11/12/24 17:00 11/14/24 05:09 1 GM Ceftriaxone Sodium 50 ml @ 100 mls/hr DAILY@09 IV 11/14/24 09:00 Metronidazole 100 ml @ 100 mls/hr Q8HR IV 11/13/24 22:00 11/14/24 05:09 100 MLS/HR objective General: NAD, AAOX3 Chest: lung oliver clear to auscultation Heart: RRR, no murmur Abdomen: non-distended, no tenderness to palpation, +BS laboratory and microbiology Laboratory Tests 11/13/24 05:31 Test 11/13/24 05:31 Range/Units Serum Glucose 116 H 74-106 mg/dL Problems(with codes): (1) Epigastric pain (2) Gastritis (3) Melena (4) GI bleed Prognosis Plan Continue Protonix 40 mg p.o. twice a day Carafate 1 g p.o. 4 times a day DC Excedrin aspirin smoking alcohol Advance diet as tolerated Monitor labs Discharge planning as per hospitalist Plan discussed with: Other (Nurse) TYRONE EGAN MD Nov 14, 2024 09:47
--- NOTE | 2024-11-14 09:49 | DVHDSRES ---
Discharge Summary Date of Admission Resident Creating Document: MOISES HANNA RESIDENT Nov 11, 2024 at 18:57 Date of Discharge: Nov 14, 2024 Admitting Diagnosis GI bleed Labs/Diagnostic Data: Laboratory Results Test 11/14/24 05:00 11/13/24 05:31 11/12/24 11:48 11/12/24 09:00 Influenza Type A Antigen Negative (Negative) Influenza Type B Antigen Negative (Negative) SARS-CoV-2 Antigen (Rapid) Negative (NEGATIVE) White Blood Count 9.8 10^3/uL (4.4-10.8) Red Blood Count 2.38 10^6/uL (4.5-5.90) Hemoglobin 8.5 g/dL (13.5-17.5) Hematocrit 24.2 % (41.0-53.0) Mean Corpuscular Volume 101.5 fL (80.0-100.0) Mean Corpuscular Hemoglobin 35.8 pg (28.0-32.0) Mean Corpuscular Hemoglobin Concent 35.3 g/dL (32.0-36.0) Red Cell Distribution Width 14.0 % (11.8-14.3) Platelet Count 143 10^3/uL (140-450) Mean Platelet Volume 9.6 fL (6.9-10.8) Neutrophils (%) (Auto) 72.8 % (37.0-80.0) Lymphocytes (%) (Auto) 15.4 % (10.0-50.0) Monocytes (%) (Auto) 10.6 % (0.0-12.0) Eosinophils (%) (Auto) 0.9 % (0.0-7.0) Basophils (%) (Auto) 0.3 % (0.0-2.0) Neutrophils # (Auto) 7.1 10 ^3/uL (1.6-8.6) Lymphocytes # (Auto) 1.5 10 ^3/uL (0.4-5.4) Monocytes # (Auto) 1.0 10 ^3/uL (0-1.3) Eosinophils # (Auto) 0.1 10 ^3/uL (0-0.8) Basophils # (Auto) 0 10 ^3/uL (0-0.2) Nucleated Red Blood Cells 0.3 % Sodium Level 141 mmol/L (136-145) Potassium Level 3.6 mmol/L (3.5-5.1) Chloride Level 105 mmol/L (98-107) Carbon Dioxide Level 26 mmol/L (20-31) Anion Gap 10 (5-15) Blood Urea Nitrogen 9 mg/dL (9-23) Creatinine 0.78 mg/dL (0.700-1.30) Glomerular Filtration Rate Calc 106 mL/min (>90) BUN/Creatinine Ratio 11.5 (10.0-20.0) Serum Glucose 116 mg/dL (74-106) Calcium Level 8.2 mg/dL (8.7-10.4) Total Bilirubin 0.7 mg/dL (0.2-1.0) Aspartate Amino Transferase (AST) 89 U/L (<34) Alanine Aminotransferase (ALT) 174 U/L (7-40) Alkaline Phosphatase 68 U/L (46-116) Total Protein 6.0 g/dL (5.7-8.2) Albumin 3.7 g/dL (3.2-4.8) Prothrombin Time 11.5 sec (9.3-11.8) Prothrombin Time INR 1.09 (0.9-1.15) Stool Occult Blood Positive (Negative) Stool Occult Blood Sample #3 (Negative) Test 11/12/24 03:44 11/11/24 18:21 Hemoglobin A1c 5.3 % A1C (<5.7) Iron Level 125 ug/dL (65-175) Total Iron Binding Capacity 321 ug/dL (250-425) Percent Iron Saturation 38.9 % (20-55) Vitamin B12 Level 430 pg/mL (211-911) Vitamin D 25-Hydroxy 21.1 ng/mL (30.0-100) Folic Acid 16.40 ng/mL (>5.38) Thyroid Stimulating Hormone (TSH) 2.57 uIU/mL (0.55-4.78) Urine Color Light-yellow (Yellow) Urine Clarity Clear (Clear) Urine pH 5.0 (5.0-9.0) Urine Specific [place] 1.027 (1.001-1.035) Urine Protein Negative (Negative) Urine Ketones Negative (Negative) Urine Blood Negative /uL (Negative) Urine Nitrite Negative (Negative) Urine Bilirubin Negative (Negative) Urine Urobilinogen Normal mg/dL (Negative) Urine Leukocyte Esterase Negative /uL (Negative) Urine RBC 1 /hpf (0 - 3) Urine Microscopic WBC 1 /HPF (0-3) Urine Squamous Epithelial Cells None seen /hpf (<5) Urine Bacteria None seen /hpf (None Seen) Urine Glucose Normal mg/dL (Normal) Other Laboratory Tests 11/13/24 05:31 Brief Hx & Hospital Course: 54 yo M presents to the hospital with a chief complaint of an acute episode of sweating, feeling cold, and experiencing changes in mental status and vision while at work. The patient reports that during this event, he started sweating and feeling cold, accompanied by a loss of mental clarity and visual disturbances. He denies any blood in his stool. The patient's medical history is significant for low hemoglobin levels, which were recently discovered. He denies any history of hypertension. The patient reports taking medication for headaches at home but does not specify which medications. He denies smoking or drug use. Summary: Patient had generalized weakness due to anemia, patient was taking pain medication for headache, GI is consulted to rule out possible GI bleed, patient underwent EGD, EGD shows: Moderate gastritis and gastropathy and multiple pre-pyloric antral gastric ulcers. Patient is started of IV Protonix and Carafate. Patient denies any abdominal pain or dizziness today. Patient is going to home with IV Protonix, Carafate. Recommended patient to follow up with GI as scheduled for further biopsy result. Patient's occult blood was positive. Patient was advised to follow up with PCP in 1-2 weeks Condition at Discharge: Stable Final Diagnosis/Problems List # Symptomatic anemia due to possible upper GI bleed # Melena to likely upper GI bleeding # dizziness due to anemia # orthostatic hypotension due to possible dehydration # Colonic Diverticulosis. # Generalized weakness due to anemia # Moderate gastritis and gastropathy and multiple pre-pyloric antral gastric ulcers # SIRS positive due to possible gastrointestinal infection with unknown organism # Intractable headache # Transaminitis due to Hepatic steatosis # incidental finding of lung nodule Discharge Disposition: Home Discharge Instruct/Medications Diet: Regular Diet comment: Avoid spicy and hot food Activity: No Restrictions, As Tolerated Follow Up/Referral: See below Medications: See below Care Plan: - Protonix 40 mg daily x30 days - Carafate 1 gm BID x 30 days - Augmentin 875 mg b.i.d. x5 days - Avoid spicy and hot food - follow up with outpatient GI for biopsy results - follow up with white spooler for outpatient surveillance of incidental pulmonary nodules - follow up with PCP in 1-2 weeks Discharge Statement: "Patient was advised to return to the ER or call 911 if any headaches, dizziness, shortness of breath, chest pain, abdominal pain, bleeding, fevers, or worsening of medical condition. Patient was counseled about treatment plan, medications, possible side effects, patientverbalized understanding. All questions were answered to the best of my ability. This discharge took greater then 30 minutes in planning, reviewing documentation, counseling the patient, and discussing with other team members." ASSESSMENT ASSESSMENT Assessment # Symptomatic anemia due to possible upper GI bleed # Melena to likely upper GI bleeding # dizziness due to anemia # orthostatic hypotension due to possible dehydration # Colonic Diverticulosis. # Generalized weakness due to anemia # Moderate gastritis and gastropathy and multiple pre-pyloric antral gastric ulcers # SIRS positive due to possible gastrointestinal infection with unknown organism # Intractable headache # Transaminitis due to Hepatic steatosis # incidental finding of lung nodule Date of Service: Nov 14, 2024 Billing Provider: LUNA MCMILLAN MD Common Visit Codes: 05774-EDK/OBS DISCH DAY >30min MOISES HANNA RESIDENT Nov 14, 2024 09:49 LUNA MCMILLAN MD Nov 18, 2024 22:37
[2024-11-14] MEDS: cefTRIAXone 1GM/50ML D5W 50 ML IV SCH (10:15)
[2024-11-14 11:10] LABS: Basophils # (auto) 0 10 ^3/uL (0-0.2); Basophils % (auto) 0.4 % (0.0-2.0); Eosinophils # (auto) 0.1 10 ^3/uL (0-0.8); Hemoglobin 9.3 g/dL (13.5-17.5); Lymphocytes # (auto) 1.1 10 ^3/uL (0.4-5.4); Monocytes # (auto) 0.6 10 ^3/uL (0-1.3); Neutrophils # (auto) 3.7 10 ^3/uL (1.6-8.6); White Blood Cell 5.6 10^3/uL (4.4-10.8)
[2024-11-14 11:12] LABS: Eosinophils % (auto) 2.1 % (0.0-7.0); Hematocrit 26.5 % (41.0-53.0); Mean Corpuscular Hemoglobin 35.6 pg (28.0-32.0); Mean Corpuscular Hgb Conc. 35.2 g/dL (32.0-36.0); Neutrophils % (auto) 66.5 % (37.0-80.0); Nucleated Red Blood Cells % 0.2 %; Platelet Count (auto) 174 10^3/uL (140-450); Red Blood Cells 2.62 10^6/uL (4.5-5.90); Red Cell Distribution Width 14.1 % (11.8-14.3)
[2024-11-14 11:14] LABS: Chloride 107 mmol/L (98-107); Sodium 143 mmol/L (136-145)
[2024-11-14 11:15] LABS: Anion Gap 9 (5-15); Calcium 9.2 mg/dL (8.7-10.4); Carbon Dioxide 27 mmol/L (20-31); Potassium 3.3 mmol/L (3.5-5.1)
[2024-11-14 11:20] LABS: BUN/Creatinine Ratio 11.3 (10.0-20.0); Blood Urea Nitrogen 9 mg/dL (9-23)
[2024-11-14 11:21] LABS: Glucose 136 mg/dL (74-106)
[2024-11-14] MEDS ORDERED: AUG875T PO (11:32)
[2024-11-14 12:53] VITALS: BP 118/77; PULSE 86; RESP 20; TEMP 36.6; O2SAT 97
[2024-11-14 13:00] VITALS: BP 131/79; PULSE 99; RESP 20; TEMP 98; O2SAT 98
--- NOTE | 2024-11-15 09:04 | ECG ---
[facility] Test Date: 2024-11-12 Test Time: 13:12:32 Pat Name: ROMMEL KHOURY Department: [facility] ED Patient ID: [id number] Room: 0214 B Gender: M [employer]: bud : [id number] Requested By: MOISES HANNA Order Number: [id number] Reading MD: Joselito Alvarado Measurements Intervals [place] Rate: 83 P: -1 OK: 139 QRS: 31 QRSD: 80 T: 45 QT: 371 QTc: 436 Interpretive Statements Sinus rhythm Posterior infarct, old Electronically Signed On 11-16-2024 19:52:21 PDT by Joselito Alvarado Please click the below link to view image of tracing.
== END 2024-11-14 14:30 | disposition home or self-care (01) | DRG 241 ==
LOC: ER 14:12 → OVERFLOW 18:57 → CENTRAL 11-12 17:30
PROVIDERS: ADMIT Student in an Organized Health Care Education/Training Program; ATTEND Emergency Medicine
PROC: 0DB68ZX Excision of Stomach, Via Natural or Artificial Opening Endoscopic, Diagnostic (ICD-10-PCS; 2024-11-12)
PROC: 0DB98ZX Excision of Duodenum, Via Natural or Artificial Opening Endoscopic, Diagnostic (ICD-10-PCS; principal; 2024-11-12 16:11)
DX: K29.71 Gastritis, unspecified, with bleeding (principal); R65.10 Systemic inflammatory response syndrome (SIRS) of non-infectious origin without acute organ dysfunction; K76.0 Fatty (change of) liver, not elsewhere classified; K25.4 Chronic or unspecified gastric ulcer with hemorrhage; A09 Infectious gastroenteritis and colitis, unspecified; D50.0 Iron deficiency anemia secondary to blood loss (chronic); K57.30 Diverticulosis of large intestine without perforation or abscess without bleeding; K31.9 Disease of stomach and duodenum, unspecified; I95.1 Orthostatic hypotension; E86.0 Dehydration; R91.1 Solitary pulmonary nodule; R74.01 Elevation of levels of liver transaminase levels
CPT/HCPCS: 36415; 43239; 71045; 74176; 80048; 80053; 81001; 82270; 82306; 82607; 82746; 83036; 83540; 83550; 84443; 85014; 85018; 85025; 85610; 86850; 86900; 86901; 87426; 87804; 93005; 96365; 96375; G0378; J2250; J2405; J2470; J3490

== ENCOUNTER 2025-04-30 07:41 | Outpatient (CLI) | payer MEDICAID ==
[~2025-04-30 07:41] MED LIST: AUG875T PO; PANT40TA2 PO; SUCR1SUS26 PO
[2025-04-30 08:38] LABS: Hematocrit 44.8 % (41.0-53.0); Hemoglobin 15.5 g/dL (13.5-17.5); Mean Corpuscular Hemoglobin 32.4 pg (28.0-32.0); Mean Corpuscular Volume 93.9 fL (80.0-100.0); Nucleated Red Blood Cells % 0.3 %
[2025-04-30 09:10] LABS: Alkaline Phosphatase 100 U/L (46-116); Triglycerides 78 mg/dL (< 150)
[2025-04-30 09:11] LABS: Albumin 4.6 g/dL (3.2-4.8); Anion Gap 8 (5-15); BUN/Creatinine Ratio 13.6 (10.0-20.0); Blood Urea Nitrogen 11 mg/dL (9-23); Calcium 9.6 mg/dL (8.7-10.4); Carbon Dioxide 30 mmol/L (20-31); Chloride 103 mmol/L (98-107); Cholesterol 114 mg/dL (< 200); Glucose 94 mg/dL (74-106); Potassium 4.3 mmol/L (3.5-5.1); Sodium 141 mmol/L (136-145); Total Protein 8.1 g/dL (5.7-8.2)
[2025-04-30 09:19] LABS: Alanine Aminotransferase 101 U/L (7-40); Bilirubin, Total 2.2 mg/dL (0.2-1.0)
[2025-04-30 09:20] LABS: HDL Cholesterol 38 mg/dL (40-59)
== END 2025-04-30 17:00 | disposition home or self-care (01) ==
LOC: LAB 07:41
PROVIDERS: ATTEND Internal Medicine
DX: R76.12 Nonspecific reaction to cell mediated immunity measurement of gamma interferon antigen response without active tuberculosis (principal); Z13.1 Encounter for screening for diabetes mellitus; Z13.29 Encounter for screening for other suspected endocrine disorder
CPT/HCPCS: 36415; 80053; 80061; 82043; 82306; 83036; 84439; 84443; 85025